=== PATIENT | male | born 1955 | race Caucasian/White ===

== ENCOUNTER 2021-05-12 12:15 | Inpatient (IN) | payer OTHER, MEDICAID ==
[~2021-05-12] VITALS: Ht 188 cm; Wt 54.0 kg
[2021-05-12 12:15] VITALS: BP 128/67
[~2021-05-12 12:15] MED LIST: ALEN70TA PO; CALC950T2 PO; FLUT1DSK19 IH; RISP2TAB PO; TRAZ-345 PO; VALP250S20 PO
--- NOTE | 2021-05-12 12:18 | NUR ---
PT BROUGHT TO BED [facility]
[2021-05-12] MEDS ORDERED: METO25TA PO (12:29)
[2021-05-12] MEDS ORDERED: OMEP20EC11 PO (12:29)
[2021-05-12] MEDS ORDERED: DIVA250T PO (12:29)
[2021-05-12] MEDS ORDERED: POTA10TE30 PO (12:29)
[2021-05-12] MEDS ORDERED: MIRT-91 PO (12:29)
[2021-05-12] MEDS ORDERED: ALLO100T21 PO (12:29)
[2021-05-12] MEDS ORDERED: OLAN2.5T1 PO (12:29)
--- NOTE | 2021-05-12 12:30 | NUR ---
65/M marcel CATRINA from [facility] c/o priapism for the past 3 days. Per report the facility did not report the erection because they thought he was having an erection during showers and daily care with all female staff. Pt began to complain of having pain to penile. Pt states "I'm having pain to my tinle area." Pt is GCS 14, confused pt at baseline per facility.
--- NOTE | 2021-05-12 13:05 | NUR ---
# 16 FR Ramirez catheter inserted utilizing sterile technique. Immediate return of 1100 ml dark, anne-marie, clear urine noted. Bedside drainage bag placed below level of bladder. F/C secured to right leg with securement. Urine sample collected and sent to lab. Pt tolerated procedure well.
[2021-05-12 13:36] LABS: APPEARANCE,URINE CLEAR (CLEAR); BILIRUBIN,URINE NEGATIVE (NEGATIVE); BLOOD, URINE 1+ (NEGATIVE); COLOR,URINE YELLOW (YELLOW); LEUKOCYTE ESTERASE ,URINE NEGATIVE (NEGATIVE); NITRITE, URINE NEGATIVE (NEGATIVE); UGLUCOSE NEGATIVE (NEGATIVE)
--- NOTE | 2021-05-12 13:36 | NUR ---
Pt report given to Nneka HORTA. Transfer of care at this time.
[2021-05-12 14:06] LABS: RBC,URINE 20-50 /HPF (0-5); WBC,URINE 0-5 /HPF (0-5)
--- NOTE | 2021-05-12 14:44 | NUR ---
Dr. Jarod Cotto notified and aware of patient's penile size. Per Dr. Jarod Cotto, patient will need urology consult.
[2021-05-12] MEDS ORDERED: ZOLPIDEM 5 MG TAB PO PRN (14:45)
[2021-05-12] MEDS ORDERED: ACETAMINOPHEN 325 MG TAB PO PRN (14:45)
[2021-05-12] MEDS ORDERED: guaiFENesin DM 200/20 MG-10 ML 10 ML UDC PO PRN (14:45)
[2021-05-12] MEDS ORDERED: HYDROcodone/APAP 7.5/325 MG 1 TAB PO PRN (14:45)
[2021-05-12] MEDS ORDERED: DOCUSATE SODIUM 100 MG GELCAP PO PRN (14:45)
[2021-05-12] MEDS: NACL 0.9% 1,000 ML IV SCH (14:45)
[2021-05-12] MEDS ORDERED: ONDANSETRON 4 MG/2 ML VIAL IM/IVP PRN (14:45)
[2021-05-12] MEDS ORDERED: POTASSIUM CHLORIDE 10 MEQ TABER PO PRN (14:45)
--- NOTE | 2021-05-12 15:45 | NUR ---
late entry: Per yousif Bautista to give patient coffee.
[2021-05-12 16:06] LABS: HEMATOCRIT 39.3 % (36-52); HEMOGLOBIN 12.8 g/dL (12.0-18.0); MEAN CORPUSCULAR HEMOGLOBIN 31 pg (27-31); MEAN CORPUSCULAR HGB CONC 33 g/dL (33-37); MEAN CORPUSCULAR VOLUME 95.4 fL (80-94); PLATELET COUNT (AUTO) 231 K/uL (140-450); RED BLOOD CELL COUNT(AUTO) 4.12 MIL/uL (4.20-6.10); RED CELL DISTRIBUTION WIDTH 15.8 % (11.6-13.7)
[2021-05-12 16:08] LABS: WHITE BLOOD COUNT (AUTO) 27.5 K/uL (4.8-10.8)
[2021-05-12 16:20] LABS: PROTHROMBIN TIME 11.5 secs (10.8-13.4)
[2021-05-12 16:23] LABS: ALBUMIN 2.9 g/dL (3.4-5.0); ANION GAP 10.6 (8-16); CARBON DIOXIDE 32.1 mmol/L (21-32); CREATININE 0.7 mg/dL (0.6-1.3); POTASSIUM 3.7 mmol/L (3.5-5.1); TOTAL BILIRUBIN 0.5 mg/dL (0.0-1.0)
[2021-05-12] MEDS ORDERED: NACL 0.9% 2,000 ML IV STA (16:23)
[2021-05-12 16:25] LABS: MAGNESIUM 2.3 mg/dL (1.8-2.4)
[2021-05-12 16:26] LABS: LYMPHOCYTES % (MANUAL) 7 % (20-46); METAMYELOCYTES % 1 % (0-0); MONOCYTES % (MANUAL) 7 % (5-12)
[2021-05-12] MEDS ORDERED: cefTRIAXone 1,000 MG VIAL ONE (16:27)
[2021-05-12 16:34] LABS: CHOL/HDL RATIO 2.5 (1-4.5); FREE T4 (FREE THYROXINE) 1.11 ng/dL (0.76-1.46); PHOSPHORUS 3.1 mg/dL (2.5-4.9); THYROID STIMULATING HORMONE 1.39 uIU/mL (0.34-3.74)
--- NOTE | 2021-05-12 16:41 | NUR ---
ROCEPHIN STARTED AT 1640 1GM AT 100ML/HR. NOT UPDATED IN EMAR FOR CHARTING.
--- NOTE | 2021-05-12 17:03 | NUR ---
US at the bedside
[2021-05-12] MEDS: allopurinoL 100 MG TAB PO SCH (17:51)
[2021-05-12] MEDS ORDERED: NACL 0.9% 1,000 ML IV SCH (18:00)
--- NOTE | 2021-05-12 18:21 | NUR ---
Patient provided with and set up dinner tray.
--- NOTE | 2021-05-12 19:28 | NUR ---
Report given to MYCHAL Barber for continuation of care.
--- NOTE | 2021-05-12 19:28 | NUR ---
REPORT RECEIVED FROM MYCHAL CHAU. TRANSFER OF CARE AT THIS TIME.
--- NOTE | 2021-05-12 19:40 | NUR ---
PT IS SLEEPING. EQUAL RISE AND FALL OF CHEST WALL. VSS. ALL NEEDS MET AT THIS TIME. BED LOCKED IN LOWEST POSITION, SIDE RAILS X2.
--- NOTE | 2021-05-12 20:37 | NUR ---
REPORT GIVEN TO MYCHAL GUTIERREZ EXT [id number]. RM [id number]
--- NOTE | 2021-05-12 20:55 | NUR ---
Patient will be admitted to care of . Admited to [facility]. Will go to room 119B. Belongings list completed. Report to MYCHAL GUTIERREZ.
[2021-05-12 21:00] VITALS: BP 118/65
--- NOTE | 2021-05-12 21:00 | NUR ---
RECEIVED REPORT FROM ER NURSE FOR ADMISSION. PT WAS BROUGHT VIA WHEELCHAIR. PT ON ROOM AIR, NO SIGNS OF DISTRESS.
--- NOTE | 2021-05-12 21:00 | NUR ---
ALL SCHEDULED MEDICATIONS GIVEN, PT TOLERATED WELL, NO SIGNS OF DISTRESS. SAFETY MEASURES IMPLEMENTED.
[2021-05-12] MEDS: MIRTAZAPINE 15 MG TAB PO SCH (21:49)
[2021-05-12] MEDS: OLANZapine 5 MG TAB PO SCH (21:49)
--- NOTE | 2021-05-13 01:00 | NUR ---
HANGED IV FLUIDS, PT TOLERATED WELL, ON ROOM AIR, NO SIGNS OF DISTRESS, SAFETY MEASURES IMPLEMENTED.
[2021-05-13] MEDS: NACL 0.9% 1,000 ML IV SCH ×3 (01:38→21:25)
--- NOTE | 2021-05-13 07:10 | NUR ---
ENDORSED PATIENT TO DAY SHIFT NURSE FOR CONTINUITY OF CARE. NO SIGNS OF DISTRESS, ON ROOM AIR
--- NOTE | 2021-05-13 07:30 | NUR ---
Received report from night nurse. first initial contact with pt. introduced myself as day nurse. Safety precautions are in place. Call light is within reach. Will continue plan of care.
[2021-05-13 07:34] LABS: BASOPHILS # (AUTO) 0.1 K/uL (0.00-0.22); BASOPHILS % (AUTO) 0.3 % (0.0-2.0); EOSINOPHILS # (AUTO) 0.2 K/uL (0-0.4); EOSINOPHILS % (AUTO) 1.1 % (0.0-4.0); HEMATOCRIT 33.6 % (36-52); HEMOGLOBIN 11.2 g/dL (12.0-18.0); LYMPHOCYTES # (AUTO) 1.2 K/uL (2.0-11.5); MEAN CORPUSCULAR HEMOGLOBIN 32 pg (27-31); MEAN CORPUSCULAR HGB CONC 33 g/dL (33-37); MEAN CORPUSCULAR VOLUME 95.5 fL (80-94); MONOCYTES # (AUTO) 1.8 K/uL (0.8-1.0); MONOCYTES % (AUTO) 9.3 % (1.7-9.3); NEUTROPHILS # (AUTO) 16.5 K/uL (1.8-7.7); NEUTROPHILS % (AUTO) 83.3 % (42.2-75.2); PLATELET COUNT (AUTO) 177 K/uL (140-450); RED BLOOD CELL COUNT(AUTO) 3.51 MIL/uL (4.20-6.10); RED CELL DISTRIBUTION WIDTH 15.5 % (11.6-13.7); WHITE BLOOD COUNT (AUTO) 19.8 K/uL (4.8-10.8)
[2021-05-13 07:44] LABS: CARBON DIOXIDE 27.7 mmol/L (21-32); CREATININE 0.5 mg/dL (0.6-1.3); POTASSIUM 3.7 mmol/L (3.5-5.1)
[2021-05-13 08:00] VITALS: BP 119/68
--- NOTE | 2021-05-13 08:42 | NUR ---
PATIENT HAS BEEN SCREENED AND CATEGORIZED HIGH NUTRITION RISK. PATIENT WILL BE SEEN WITHIN 1-2 DAYS OF ADMISSION. 05/13/21-05/14/[address]
[2021-05-13] MEDS: METOPROLOL 25 MG TAB PO SCH (09:00)
[2021-05-13] MEDS: PANTOPRAZOLE 40 MG TABEC PO SCH (09:00)
[2021-05-13] MEDS: allopurinoL 100 MG TAB PO SCH ×3 (09:00→17:28)
--- NOTE | 2021-05-13 10:54 | NUR ---
ADMINISTERED SCHEDULED MEDICATIONS PER MD ORDER. EDUCATED SARA ON MEDICATIONS MOA AND SIDE EFFECTS. PT VERBALIZED UNDERSTANDING. ASSESSED PENIS AND IT WAS PINK. URINARY CATHETER DRAINING WELL. WILL CONTINUE TO MONITOR.
[2021-05-13] MEDS: CALCIUM CARB/VIT-D 500 MG/200 IU 1 TAB PO SCH (13:34)
--- NOTE | 2021-05-13 13:36 | NUR ---
ADMINISTERED SCHEDULED MEDICATIONS PER MD ORDER. EDUCATED PT ON MOA AND SIDE EFFECTS OF MEDICATION. PT VERBALIZED UNDERSTANDING. PT IS EATING AND DOES NOT APPEAR TO BE IN AN ACUTE DISTRESS. CALL LIGHT IS WITHIN REACH.WILL CONTINUE TO MONITOR.
--- NOTE | 2021-05-13 15:30 | NUR ---
05/13/21 RD INITIAL ASSESSMENT COMPLETED PLEASE REFER TO NUTRITION ASSESSMENT UNDER CARE ACTIVITY FOR ESTIMATED NUTRITIONAL NEEDS. 1. CONTINUE REGULAR DIET TOLERATED 2. RECOMMEND ENSURE BID 3. RD TO FOLLOW-UP 5-7 DAYS, LOW RISK SAMEERA MCCOY RD
[2021-05-13 16:00] VITALS: BP 119/68
--- NOTE | 2021-05-13 17:29 | NUR ---
ADMINISTERED SCHEDULED MEDICATIONS PER MD ORDER. EDUCATED PT ON MEDICATIONS. PT VERBALIZED UNDERSTANDING. WILL CONTINUE TO MONITOR.
--- NOTE | 2021-05-13 19:30 | NUR ---
ENDORSED TO NIGHT NURSE FOR CONTINUITY OF CARE. PT IS STABLE.
--- NOTE | 2021-05-13 19:32 | NUR ---
RECEIVED PT ON BED, AAOX3, ABLE TO MAKE NEEDS KNOWN, DENIES ANY PAIN, VIGIL CATHETER IN PLACE DRAINING YELLOW URINE, IVF INFUSING WELL, PLAN OF CARE DISCUSSED, SAFETY MEASURES IN PLACE, CALL LIGHT WITHIN REACH.
[2021-05-13 20:00] VITALS: BP 135/74
[2021-05-13] MEDS ORDERED: CRUSHER, PILL MC ONE (20:53)
[2021-05-13] MEDS: MIRTAZAPINE 15 MG TAB PO SCH (20:56)
[2021-05-13] MEDS: OLANZapine 5 MG TAB PO SCH (20:56)
--- NOTE | 2021-05-13 21:00 | NUR ---
PT AWAKE OCCASIONALLY TALKS TO HIMSELF, HX OF SCHIZOPHRENIA, CALM AND COOPERATIVE, DUE MEDS GIVEN, PROVIDED WITH JUICE PER REQUEST, TOLERATED WELL, ALL NEEDS ATTENDED.
--- NOTE | 2021-05-13 23:30 | NUR ---
ROUNDS MADE, SEEN PT SLEEPING, NO SIGNS OF DISTRESS, ABLE TO REPOSITION SELF, IVF INFUSING WELL, CONTINUE TO MONITOR CLOSELY.
[2021-05-14 04:00] VITALS: BP 129/66
--- NOTE | 2021-05-14 04:00 | NUR ---
PT SLEEPING, EASILY AROUSABLE, VITAL SIGNS STABLE, NO SIGNS OF PAIN, IVF INFUSING WELL, MONITORED CLOSELY.
[2021-05-14] MEDS: NACL 0.9% 1,000 ML IV SCH ×2 (04:08→17:20)
[2021-05-14 06:24] LABS: CARBON DIOXIDE 29.8 mmol/L (21-32); CREATININE 0.5 mg/dL (0.6-1.3); POTASSIUM 3.8 mmol/L (3.5-5.1)
[2021-05-14 06:26] LABS: BASOPHILS % (AUTO) 0.2 % (0.0-2.0); EOSINOPHILS # (AUTO) 0.4 K/uL (0-0.4); EOSINOPHILS % (AUTO) 2.6 % (0.0-4.0); HEMATOCRIT 32.7 % (36-52); HEMOGLOBIN 10.7 g/dL (12.0-18.0); LYMPHOCYTES # (AUTO) 1.8 K/uL (2.0-11.5); LYMPHOCYTES % (AUTO) 13.3 % (20.5-51.1); MEAN CORPUSCULAR HEMOGLOBIN 32 pg (27-31); MEAN CORPUSCULAR HGB CONC 33 g/dL (33-37); MEAN CORPUSCULAR VOLUME 96.3 fL (80-94); MONOCYTES # (AUTO) 1.6 K/uL (0.8-1.0); MONOCYTES % (AUTO) 11.5 % (1.7-9.3); NEUTROPHILS # (AUTO) 9.9 K/uL (1.8-7.7); NEUTROPHILS % (AUTO) 72.4 % (42.2-75.2); PLATELET COUNT (AUTO) 212 K/uL (140-450); RED BLOOD CELL COUNT(AUTO) 3.39 MIL/uL (4.20-6.10); RED CELL DISTRIBUTION WIDTH 15.2 % (11.6-13.7); WHITE BLOOD COUNT (AUTO) 13.7 K/uL (4.8-10.8)
[2021-05-14 07:08] LABS: T4 (THYROXINE) 8.2 ug/dL (4.5-12.0)
--- NOTE | 2021-05-14 07:25 | NUR ---
PT SLEEPING, NO DISTRESS NOTED, BEDSIDE REPORT GIVEN TO MYCHAL LOCKHART FOR CONTINUITY OF CARE.
--- NOTE | 2021-05-14 07:30 | NUR ---
RECEIVED REPORT FROM NIGHT NURSE FOR CONTINUITY OF CARE. WILL CONTINUE POC.
[2021-05-14 08:07] LABS: FOLIC ACID 3.7 ng/mL (>3.0)
[2021-05-14] MEDS: CALCIUM CARB/VIT-D 500 MG/200 IU 1 TAB PO SCH (08:39)
[2021-05-14] MEDS: PANTOPRAZOLE 40 MG TABEC PO SCH (08:40)
[2021-05-14] MEDS: allopurinoL 100 MG TAB PO SCH ×3 (08:42→17:20)
[2021-05-14] MEDS: TAMSULOSIN 0.4 MG CAP PO SCH (08:43)
[2021-05-14] MEDS: METOPROLOL 25 MG TAB PO SCH (08:43)
--- NOTE | 2021-05-14 08:45 | NUR ---
ADMINISTERED SCHEDULED MEDICATIONS PER MD ORDER. EDUCATED PT ON MEDICATIONS MOA AND SIDE EFFECTS. I HELD METOPROLOL DUE TO BP BEING 118/72, MT:101. PT VERBALIZED UNDERSTANDING OF MEDICATIONS. ASSESSED IV PATENCY AND IT WAS PATENT AND INTACT. FLUIDS ARE RUNNING WELL. CALL LIGHT IS WITHIN REACH.PT IS WATCHING TELEVISION AND IS NOT UNDER ACUTE APPARENT DISTRESS. WILL CONTINUE TO MONITOR.
--- NOTE | 2021-05-14 09:00 | NUR ---
ASSESSED PT'S PENIS AND IT WAS SPINK AND SOFT WITH NO PAIN WILL CONTINUE TO MONITOR.. VIGIL CATHETER IS DRAINING WELL. SAFETY PRECAUTIONS ARE IN PLACE.
--- NOTE | 2021-05-14 11:39 | NUR ---
DC PLANNING: PATIENT CAME FROM [facility], HAS BEEN THERE SINCE 2009. PT HAS A H/O SCHIZOPHRENIA BUT IS ABLE TO MAKE HIS NEEDS KNOWN. PATIENT USES A WC BUT IS ALSO AMBULATORY, IS TOTAL CARE FOR BATHING AND DRESSING BUT INDEPENDENT EATING. HE IS INCONTINENT OF BOWEL AND BLADDER. PATIENT HAS NO FAMILY, [facility] IS RESPONSIBLE FOR HIM. PATIENT HAS A FC AND WILL POSSIBLY NEED CONTINUATION OF IV ABX, FOR THIS REASON IS REFERRED TO [facility]. MANN SPOKE WITH FE AT [facility] SHE STATES THAT SHE WILL [facility]. FE'S NUMBER IS [phone], PLEASE CALL HER ONCE DC ORDER IS RECEIVED SO SHE CAN MAKE THE ARRANGEMENTS FOR TRANSPORT. Addendum: 05/14/21 at 1350 by Sarah Alba CM DC PLANNING: PATIENT ASSIGNED ROOM 12A AT [facility]. CM WILL FOLLOW FOR NEEDS.
--- NOTE | 2021-05-14 15:50 | NUR ---
GAVE PT SOME DECAF COFFE REQUESTED. PT IS NOT UNDER APPARENT DISTRESS. SAFETY PRECAUTIONS ARE IN PLACE.WILL CONTINUE TO MONITOR.
[2021-05-14 16:00] VITALS: BP 146/78
--- NOTE | 2021-05-14 17:20 | NUR ---
ADMINISTERED SCHEDULED MEDICATIONS PER MD ORDER. EDUCATED PT ON MEDICATIONS MOA AND SIDE EFFECTS. PT VERBALIZED UNDERSTANDING. INFUSION IS RUNNING WELL. PT IS RESTING COMFORTABLY. SAFETY PRECAUTIONS ARE IN PLACE. CALL LIGHT IS WITHIN REACH. WILL CONTINUE TO MONITOR.
--- NOTE | 2021-05-14 19:15 | NUR ---
REPORT GIVEN FROM AM NURSE. PATIENT IN BED RESTING. NO S/S OF RESPIRATORY DISTRESS NOTED. IVF NS INFUSING ON THE RIGHT WRIST. SAFETY MEASURES IN PLACE. CALL LIGHT WITHIN REACH.
--- NOTE | 2021-05-14 19:30 | NUR ---
ENDORSED PT TO NIGHT NURSE FOR CONTINUITY OF CARE.PT IS STABLE.
[2021-05-14] MEDS: OLANZapine 5 MG TAB PO SCH (21:09)
[2021-05-14] MEDS: MIRTAZAPINE 15 MG TAB PO SCH (21:09)
--- NOTE | 2021-05-14 21:09 | NUR ---
ADMINISTERED MEDS ORDERED.
[2021-05-15] VITALS: BP 128/73
--- NOTE | 2021-05-15 03:07 | NUR ---
CHECKED PATIENT. PT IS IN BED, NO SOB NOTED. CALL LIGHT WITHIN REACH.
[2021-05-15] MEDS: NACL 0.9% 1,000 ML IV SCH ×3 (03:25→14:26)
--- NOTE | 2021-05-15 07:26 | NUR ---
ENDORSED TO AM NURSE FOR CONTINUITY OF CARE. PATIENT IS STABLE.
[2021-05-15 07:54] LABS: BASOPHILS # (AUTO) 0.1 K/uL (0.00-0.22); BASOPHILS % (AUTO) 0.8 % (0.0-2.0); EOSINOPHILS # (AUTO) 0.5 K/uL (0-0.4); EOSINOPHILS % (AUTO) 3.9 % (0.0-4.0); HEMATOCRIT 34.9 % (36-52); HEMOGLOBIN 11.6 g/dL (12.0-18.0); LYMPHOCYTES # (AUTO) 1.9 K/uL (2.0-11.5); LYMPHOCYTES % (AUTO) 16.1 % (20.5-51.1); MEAN CORPUSCULAR HEMOGLOBIN 32 pg (27-31); MEAN CORPUSCULAR HGB CONC 33 g/dL (33-37); MEAN CORPUSCULAR VOLUME 94.6 fL (80-94); MONOCYTES # (AUTO) 1.4 K/uL (0.8-1.0); MONOCYTES % (AUTO) 11.7 % (1.7-9.3); NEUTROPHILS # (AUTO) 7.9 K/uL (1.8-7.7); NEUTROPHILS % (AUTO) 67.5 % (42.2-75.2); PLATELET COUNT (AUTO) 252 K/uL (140-450); RED BLOOD CELL COUNT(AUTO) 3.69 MIL/uL (4.20-6.10); RED CELL DISTRIBUTION WIDTH 15.4 % (11.6-13.7); WHITE BLOOD COUNT (AUTO) 11.7 K/uL (4.8-10.8)
[2021-05-15 08:00] VITALS: BP 153/86
[2021-05-15 08:18] LABS: ANION GAP 6.7 (8-16); CARBON DIOXIDE 32.4 mmol/L (21-32); CREATININE 0.5 mg/dL (0.6-1.3); POTASSIUM 4.1 mmol/L (3.5-5.1)
[2021-05-15] MEDS: allopurinoL 100 MG TAB PO SCH ×3 (10:04→18:31)
[2021-05-15] MEDS: CALCIUM CARB/VIT-D 500 MG/200 IU 1 TAB PO SCH (10:04)
[2021-05-15] MEDS: PANTOPRAZOLE 40 MG TABEC PO SCH (10:04)
[2021-05-15] MEDS: METOPROLOL 25 MG TAB PO SCH (10:05)
[2021-05-15] MEDS: TAMSULOSIN 0.4 MG CAP PO SCH (10:05)
--- NOTE | 2021-05-15 10:36 | NUR ---
P.T. NOTES P.T. EVAL COMPLETED; REFER TO EVAL FOR DETAILS; ENDORSED TO NURSING.
[2021-05-15] MEDS ORDERED: TAMS0.4C96 PO (11:37)
--- NOTE | 2021-05-15 12:13 | NUR ---
LEAVE MESSAGE TO FE FROM [facility] [phone] PT HAS DC ORDER, FE WILL CALL ME BACK.
--- NOTE | 2021-05-15 12:17 | NUR ---
TALKED TO MAURICE FROM [facility], MADE AWARE PT HAS DC ORDER TODAY, PER MAURICE PATIENT BED AVAILABLE IS FOR TOMORROW, INFORMED DR JAMIL, WILL WAIT FOR FE CALL BACK
--- NOTE | 2021-05-15 12:40 | NUR ---
CALL PLACE AGAIN TO [facility] SPOKE TO MAURICE, PER MAURICE [facility] IS THE ONLY ONE WHO CAN APPROVED THE ADMISSION, AND THEY WERE INSTRUCTED PT WILL BE ACCEPTED TOMORROW, WILL FOLLOW UP WITH FE.
[2021-05-15 16:00] VITALS: BP 112/68
[2021-05-15 16:13] VITALS: BP 146/80
--- NOTE | 2021-05-15 19:24 | NUR ---
RECEIVED REPORT FROM AM NURSE. PATIENT IN BED, NO SOB NOTED. DENIES PAIN. SAFETY MEASURES IN PLACE.
--- NOTE | 2021-05-15 21:02 | NUR ---
CALLED [facility] .THEY WILL COME TO ANIMAL TECHNICIAN PT AT [phone].
[2021-05-15] MEDS: OLANZapine 5 MG TAB PO SCH (22:22)
[2021-05-15] MEDS: MIRTAZAPINE 15 MG TAB PO SCH (22:22)
--- NOTE | 2021-05-15 23:01 | NUR ---
DISCHARGED PATIENT TO [facility] PICKED UP BY [facility] IN STABLE CONDITION.
== END 2021-05-15 23:00 | DRG 872 ==
LOC: MED 12:15 → MMU 13:38 → MTU 19:17
PROVIDERS: ADMIT Family Medicine; ATTEND Family Medicine
DX: A41.9 Sepsis, unspecified organism (principal); E44.0 Moderate protein-calorie malnutrition; N48.30 Priapism, unspecified; Z68.1 Body mass index [BMI] 19.9 or less, adult; N39.0 Urinary tract infection, site not specified; F20.9 Schizophrenia, unspecified; R33.9 Retention of urine, unspecified; F39 Unspecified mood [affective] disorder; Z72.0 Tobacco use; M10.9 Gout, unspecified; I10 Essential (primary) hypertension; E83.51 Hypocalcemia
CPT/HCPCS: 36415; 51702; 71045; 76770; 80048; 80053; 81001; 82150; 82607; 82728; 82746; 83036; 83540; 83690; 83735; 83880; 84100; 84436; 84439; 84443; 84479; 84484; 85025; 85045; 85610; 85730; 87040; 87081; 87086; 96365; 97163-GP; 99285; J0696; J7030; J7060; Q0092